=== PATIENT | female | born 1955 | race African-American/Black ===

== ENCOUNTER 2021-04-27 20:51 | Observation (INO) ==
[2021-04-27 21:51] LABS: ABG HCO3 23.2 MMOL/L (20-26); ABG Oxygen Saturation 78.1 % (95-100); ABG PCO2 44.5 MM HG (35-48); ABG PH 7.355 (7.35-7.45); ABG PO2 43.7 MM HG (80-95)
[2021-04-27 21:55] LABS: Basophils % 0.5 % (0.0-0.8); Eosinophils # 0.1 10*3/uL (0.0-0.87); Eosinophils % 1.2 % (0.00-10.9); Hematocrit 36.6 VOL% (35.7-47.0); Hemoglobin 12.6 GM/DL (12.0-16.0); Immature Granulocytes % 0.4 %; Immature Granulocytes Absolute 0.03 #; Lymphocytes # 2.4 10*3/uL (1.4-4.0); Lymphocytes % 29.1 % (21.3-54.2); Mean Corpuscular HGB Conc 34.4 GM/DL (32-36); Mean Corpuscular Volume 82.4 FL (87-102); Mean Platelet Volume 11.4 FL (9.6-12.0); Monocytes % 6.4 % (1.7-12.7); Neutrophils % 62.4 % (38.7-73.9); Platelet Count 258 T/CUMM (130-400); Red Blood Count 4.44 MC/CUMM (3.8-5.5); Red Cell Distribution Width 11.8 % (9.3-17.3); White Blood Count 8.2 T/CUMM (4-12)
[2021-04-27 22:01] LABS: Bacteria,Urine Occasional /HPF (Few); Bilirubin,Urine Negative (Negative); Blood, Urine Negative (Negative); Glucose,Urine (UA) >=500 mg/dL (Negative); Ketones,Urine Negative (Negative); Mucus,Urine Occasional /LPF (Occasional); Nitrite,Urine Negative (Negative); Protein,Urine Negative; RBC,Urine 3 /HPF (0-4); Squamous Epithelial Cell,Urine Occasional /HPF (0-10); Urine Appearance CLEAR (Clear); Urine Color Straw (Yellow); Urine Urobilinogen < 2.0 EU/DL (0.2-1.0)
[2021-04-27 22:19] LABS: Albumin 4.3 G/DL (3.4-5.0); Bilirubin,Total 0.5 MG/DL (0.20-1.00); Calcium 9.9 MG/DL (8.5-10.1); Osmolality,Calculated 286.8 MOS/KG (273-304); Potassium 4.5 MMOL/L (3.5-5.1); Total Protein 9.4 G/DL (6.4-8.2)
[2021-04-27] MEDS ORDERED: SODIUM CHLORIDE 0.9% 1,000 ML IV STA ×2 (22:24→22:37)
[2021-04-27] MEDS ORDERED: INSULIN REGULAR 100 UNIT/ML IV STA ×2 (22:24→22:37)
[2021-04-27 23:44] LABS: Calcium 9.3 MG/DL (8.5-10.1); Osmolality,Calculated 280.6 MOS/KG (273-304); Potassium 5.5 MMOL/L (3.5-5.1)
[2021-04-28 01:36] LABS: Osmolality,Calculated 278.4 MOS/KG (273-304); Potassium 4.1 MMOL/L (3.5-5.1)
[2021-04-28] MEDS ORDERED: INSULIN REGULAR 100 UNIT/ML SUBCUT STA (01:57)
[2021-04-28] MEDS ORDERED: NICOTINE 21 MG/24 HR PATCH TRANSDERM PRN (02:34)
[2021-04-28] MEDS ORDERED: ONDANSETRON 4 MG/2 ML VIAL IV PRN (02:34)
[2021-04-28] MEDS ORDERED: GLUCAGON 1 MG VIAL IM PRN (02:34)
[2021-04-28] MEDS ORDERED: DEXTROSE 50% 25 GM/50 ML VIAL IV PRN (02:34)
[2021-04-28] MEDS ORDERED: ACETAMINOPHEN 325 MG TABLET PO PRN (02:34)
[2021-04-28] MEDS ORDERED: MORPHINE 2 MG/1 ML SYRINGE IV PRN (02:34)
[2021-04-28] MEDS: SODIUM CHLORIDE 0.9% 1,000 ML IV SCH ×3 (03:30→19:47)
[2021-04-28 04:36] LABS: Calcium 8.9 MG/DL (8.5-10.1); Potassium 3.9 MMOL/L (3.5-5.1)
[2021-04-28 04:38] LABS: Osmolality,Calculated 275.4 MOS/KG (273-304)
[2021-04-28] MEDS: INSULIN REGULAR 100 UNIT/ML SUBCUT SCH ×3 (09:04→19:46)
[2021-04-28] MEDS: INSULIN LISPRO 100 UNIT/ML SUBCUT SCH ×4 (10:19→22:01)
[2021-04-28 10:43] LABS: Calcium 8.7 MG/DL (8.5-10.1); Osmolality,Calculated 282.8 MOS/KG (273-304); Potassium 3.7 MMOL/L (3.5-5.1)
[2021-04-28] MEDS ORDERED: INSULIN GLARGINE 100 UNIT/ML SUBCUT SCH (21:00)
[2021-04-29] MEDS: INSULIN REGULAR 100 UNIT/ML SUBCUT SCH ×3 (01:26→11:54)
[2021-04-29] MEDS: SODIUM CHLORIDE 0.9% 1,000 ML IV SCH ×2 (03:19→11:55)
[2021-04-29 06:17] LABS: Calcium 8.5 MG/DL (8.5-10.1); Potassium 3.3 MMOL/L (3.5-5.1)
[2021-04-29] MEDS ORDERED: POTASSIUM CHLORIDE 20 MEQ TABLET PO PRN (07:58)
[2021-04-29] MEDS: INSULIN LISPRO 100 UNIT/ML SUBCUT SCH ×2 (08:40→11:54)
[2021-04-29 11:58] VITALS: BP 108/67
== END 2021-04-29 14:07 | disposition home health service (06) ==
LOC: N.ED 20:51 → SUATTDRO 04-28 02:34 → INTOOBSV 04-28 02:34 → N.EDINP 04-28 02:34 → N.4E 04-28 15:32
PROVIDERS: ADMIT Internal Medicine; ATTEND Emergency Medicine